=== PATIENT | female | born 1955 | race Caucasian/White ===

== ENCOUNTER 2018-07-08 09:42 | Emergency (ER) | payer OTHER ==
[2018-07-08 11:19] LABS: ADD MAN DIFF? NO
[2018-07-08] MEDS: SOD CHLORIDE 0.9% 500 ML IV (11:28)
[2018-07-08] MEDS: MECLIZINE 12.5 MG TAB PO (11:28)
[2018-07-08] MEDS: ONDANSETRON 4 MG INJ IV (11:28)
[2018-07-08 11:42] LABS: ANION GAP 17 (8-16); BLOOD UREA NITROGEN 13 mg/dl (7-20); CALCIUM 9.4 mg/dl (8.4-10.2); CARBON DIOXIDE 22 mmol/L (21-31); CHLORIDE 108 mmol/L (97-110); CREATININE 0.59 mg/dl (0.44-1.00); GLUCOSE 116 mg/dl (70-220); POTASSIUM 4.2 mmol/L (3.5-5.1); SODIUM 143 mmol/L (135-144)
[2018-07-08 12:40] LABS: BASOPHILS % 0.2 % (0.0-2.0); EOSINOPHILS % 0.2 % (0.0-7.0); HEMATOCRIT 35.4 % (37.0-47.0); HEMOGLOBIN 11.9 g/dl (12.0-16.0); LYMPHOCYTES # 1.1 10^3/ul (0.8-2.9); LYMPHOCYTES % 12.6 % (15.0-51.0); MEAN CORPUSCULAR HEMOGLOBIN 31.3 pg (29.0-33.0); MEAN CORPUSCULAR HGB CONC 33.6 g/dl (32.0-37.0); MEAN CORPUSCULAR VOLUME 93.2 fl (82.0-101.0); MEAN PLATELET VOLUME 11.3 fl (7.4-10.4); MONOCYTE # 0.4 10^3/ul (0.3-0.9); MONOCYTES % 4.8 % (0.0-11.0); NEUTROPHIL # 7.1 10^3/ul (1.6-7.5); PLATELET COUNT 228 10^3/UL (140-415); RED CELL DISTRIBUTION WIDTH 12.3 % (11.5-14.5)
[2018-07-08 12:40] LABS: WHITE BLOOD COUNT 8.7 10^3/ul (4.8-10.8)
== END 2018-07-08 16:50 | disposition home or self-care (01) ==
LOC: E/R 09:42
DX: H81.399 Other peripheral vertigo, unspecified ear (principal)
CPT/HCPCS: 36415; 80048; 85025; 93005; 96374; 99284-25